=== PATIENT | female | born 2000 | race Caucasian/White ===

== ENCOUNTER 2020-05-10 09:38 | Outpatient (CLI) | payer MEDICAID, SELFPAY ==
[2020-05-11 12:46] LABS: COVID-19 RT-PCR UVMMC Result Negative (Negative)
== END 2020-05-10 09:39 | disposition home or self-care (01) ==
LOC: LBO 09:39
PROVIDERS: PCP Nurse Practitioner; Visit Provider Nurse Practitioner
DX: Z20.822 Contact with and (suspected) exposure to COVID-19 (principal)
CPT/HCPCS: U0003

== ENCOUNTER 2020-05-12 03:43 | Outpatient (CLI) | payer MEDICAID, SELFPAY ==
[2020-05-13 13:50] LABS: COVID-19 RT-PCR UVMMC Result Negative (Negative)
== END 2020-05-12 03:44 | disposition home or self-care (01) ==
LOC: LBO 03:43
PROVIDERS: PCP Nurse Practitioner; Visit Provider Nurse Practitioner
DX: Z20.822 Contact with and (suspected) exposure to COVID-19 (principal)
CPT/HCPCS: U0003

== ENCOUNTER 2021-03-27 19:04 | Emergency (ER) | payer OTHER, MEDICAID, SELFPAY ==
[2021-03-27 19:24] VITALS: BP 148/97; PULSE 108; RESP 18; TEMP 37.1; O2SAT 99
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
[2021-03-27 20:47] VITALS: BP 148/97; PULSE 108; RESP 18; TEMP 37.1; O2SAT 99
== END 2021-03-27 20:53 | disposition home or self-care (01) ==
PROVIDERS: Emergency Provider Nurse Practitioner Family; PCP Nurse Practitioner
DX: S16.1XXA Strain of muscle, fascia and tendon at neck level, initial encounter (principal); R51.9 Headache, unspecified; V49.9XXA Car occupant (driver) (passenger) injured in unspecified traffic accident, initial encounter
CPT/HCPCS: 99284; 70450; 72125; 99283

== ENCOUNTER 2021-08-07 07:57 | Emergency (ER) | payer MEDICAID, SELFPAY ==
[2021-08-07 08:03] VITALS: BP 140/87; PULSE 106; RESP 17; TEMP 37; O2SAT 100
[2021-08-07 08:05] VITALS: RESP 17
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
--- NOTE | 2021-08-07 09:35 | NUR.NOTE ---
gave patient her negative covid results:
[2021-08-07 09:37] LABS: Source Nasal/Nares
[2021-08-07 09:41] LABS: COVID-19 PCR Negative (Negative)
== END 2021-08-07 09:05 | disposition home or self-care (01) ==
PROVIDERS: Emergency Provider Physician Assistant; PCP Nurse Practitioner
DX: J06.9 Acute upper respiratory infection, unspecified (principal); J02.9 Acute pharyngitis, unspecified; Z20.822 Contact with and (suspected) exposure to COVID-19
CPT/HCPCS: 87635; 87880; 99282; U0003; 87081

== ENCOUNTER 2021-08-14 14:51 | Outpatient (REF) | payer MEDICAID, SELFPAY | END 2021-08-14 14:52 | disposition home or self-care (01) | LOC: LBN 14:51 | PROVIDERS: PCP Nurse Practitioner; Visit Provider Nurse Practitioner | DX: J02.9 Acute pharyngitis, unspecified (principal); J06.9 Acute upper respiratory infection, unspecified | CPT/HCPCS: 87070 ==

== ENCOUNTER 2022-04-22 13:06 | Emergency (ER) | payer MEDICAID, SELFPAY ==
[2022-04-22 13:09] VITALS: BP 126/87; PULSE 107; RESP 18; TEMP 37; O2SAT 100
[2022-04-22 13:13] VITALS: RESP 18
[2022-04-22] MEDS: Acetaminophen 325 MG TAB 650 MG PO (13:39)
[2022-04-22] MEDS: Ondansetron O.D.T. 4 MG TABEF PO (13:39)
--- NOTE | 2022-04-22 14:06 | W.ED.GENAD ---
Discharge Plan Disposition Patient Disposition: Home Condition: Stable Discharge Details Clinical Impression: Nausea & vomiting, Light-headed feeling Primary Care Provider: Celena Magallon ED Provider: Eileen Rose Home Meds and New Rx's Prescriptions: New ondansetron HCl 4 mg tablet 4 mg PO DAILY 3 Days Qty: 10 0RF Continued drospirenone-ethinyl estradiol [Steffi (28)] 3-0.03 mg tablet 1 tab PO DAILY Qty: 84 3RF Discharge Instructions Instructions: Acute Nausea and Vomiting (ED) Additional Instructions: Take Zofran as needed for nausea and vomiting Take ibuprofen and Tylenol for pain Return earlier should you have new or worsening complaints Recheck in 2 to 3 days if persistent symptoms Stand Alone Forms: Work Release Referrals: Celena Magallon, HYDRAULIC MODELING ENGINEER [Primary Care Provider] - Discharge Data Discharge Date/Time-TO BE ENTERED AT DEPARTURE: 04/22/22 14:19 Medical Decision Making This 21-year-old female who presents with flulike syndrome has a negative rapid test for flu and COVID at this time, I suspect her symptoms are viral, she is well in appearance Negative test in the emergency department She is given antiemetics and is able to tolerate p.o. Will take supportive care with ibuprofen and Tylenol at home Work note supplied Return precautions reviewed and patient expressed understanding Medical Records Medical records reviewed: Yes I reviewed the patient's medical records. Lab Data Lab results reviewed: Yes I reviewed the patient's lab results. HPI General Date/Time Provider Initiated Documentation: 04/22/22 13:32. HPI Narrative: This 21-year-old female presents with dry cough, nausea, and lightheadedness. She states she thinks she has had fever at home. She denies known sick contacts. She denies any chance of . She denies any chest pain or shortness of breath. Denies history of asthma Related Data Home Medications Medication Instructions Recorded Confirmed drospirenone 3 mg-ethinyl 1 tab PO DAILY #84 tabs 07/06/21 04/22/22 estradiol 0.03 mg tablet (Steffi (28)) ondansetron HCl 4 mg tablet 4 mg PO DAILY 3 days #10 tabs 04/22/22 Previous Rx's Medication Instructions Recorded drospirenone 3 mg-ethinyl 1 tab PO DAILY #84 tabs 07/06/21 estradiol 0.03 mg tablet (Steffi (28)) ondansetron HCl 4 mg tablet 4 mg PO DAILY 3 days #10 tabs 04/22/22 Allergies Allergy/AdvReac Type Severity Reaction Status Date / Time Latex, Natural Rubber Allergy Intermediate hives Verified 04/22/22 13:12 General Stated Complaint: GenMedical PHILLY: 4 Review of Systems All systems reviewed & are unremarkable except as noted in HPI and below PFSH All Active Problems (Updated 04/22/22 @ 14:11 by BLAYNE Enriquez) Nausea & vomiting (Acute) Light-headed feeling (Acute) GERD (gastroesophageal reflux disease) (Chronic) Scoliosis (Chronic) Thoracic & Lumbar; see x-ray 06/13/2015 ([facility]; scanned); Not bothersome; dx'ed adolescent & then told improving Medical History Lymphadenopathy PARATRACHEAL AND 8 MM CALCIFIED GRANULOMA ON CT CHEST 08/2015; also seen on CXR & scoliosis series x-rays (scanned) Surgical History History of wisdom tooth extraction No significant past surgical history Family History Mother Asthma Aunt Asthma Aunt Pancreatic cancer Father Hypertension Other Diabetes Social History Smoking/Tobacco Use Status: Never Second Hand Exposure: Yes Smoking risk assessment performed?: Yes Alcohol Intake: never Drug use: Never Substance use type: does not use Adopted: No Caregiver/Support person: No Foster care: No Household members: family Housing: house Number of Children: 0 Communication Needs: None Education Level: college Do you need help understanding health information?: Never 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 - [employer] Pets and animals: Yes Pets and animals: cat(s) and dog(s) Sexually active: No Do you think of yourself as: straight/heterosexual Current gender identity: female What is your relationship status?: never Panel score (0-1 are the most socially isolated patients): 0 What type of physical activity do you participate in: walking Special melissa needs: No Seatbelt use: always Helmet use: Yes Helmet use: always Drive intox or ride w/intox flatbed driver: No Working smoke detector in home: Yes Fire extinguisher in home: Yes Carbon monox detector in home: Yes Do you feel safe at home: Yes Do you feel safe in your relationship?: Yes Victim of physical abuse: No Victim of emotional abuse: No Victim of sexual abuse: No History History 0 Para 0 Hx # Term Pregnancies Multiple births Hx # Pregnancies Ectopic pregnancies AB induced Hx Number of Living Children AB spontaneous Exam Narrative Exam Narrative: Lungs clear to auscultation, no respiratory distress Oropharynx patent, abdomen nontender No acute distress, fully alert and oriented, no rashes or lesions Const General: cooperative, comfortable and no acute distress Course Vital Signs Vital signs: Vital Signs Temperature 37.0 C 04/22/22 13:09 Pulse 107 H 04/22/22 13:09 Respiratory Rate 18 04/22/22 13:09 Blood Pressure 126/87 04/22/22 13:09 Pulse Oximetry 100 04/22/22 13:09 Temperature 37.0 C 04/22/22 13:09 Temperature Source Temporal Artery Scan 04/22/22 13:09 Pulse 107 H 04/22/22 13:09 Respiratory Rate 18 04/22/22 13:13 Respiratory Effort 04/22/22 13:13 Respiratory Depth Normal 04/22/22 13:13 Respiratory Pattern Normal 04/22/22 13:13 Blood Pressure 126/87 04/22/22 13:09 Blood Pressure Position Sitting 04/22/22 13:09 Pulse Oximetry 100 04/22/22 13:09 Oxygen Delivery Method Room Air 04/22/22 13:09 Oxygen Flow Rate 0 04/22/22 13:09 Lab/Test Results Lab/Test Results: POC- Test(urine) Negative
== END 2022-04-22 14:19 | disposition home or self-care (01) ==
PROVIDERS: Emergency Provider Physician Assistant; PCP Nurse Practitioner
DX: R11.2 Nausea with vomiting, unspecified (principal); R42 Dizziness and giddiness; R05.1 Acute cough
CPT/HCPCS: 81025; 99283; 99284

== ENCOUNTER 2022-05-30 02:37 | Outpatient (CLI) | payer MEDICAID, SELFPAY ==
[2022-05-30 14:27] LABS: HCG Qual (Serum) Negative
== END 2022-05-30 02:38 | disposition home or self-care (01) ==
LOC: LBO 02:37
PROVIDERS: PCP Nurse Practitioner; Referring Provider Nurse Practitioner; Visit Provider Nurse Practitioner
DX: N92.5 Other specified irregular menstruation (principal)
CPT/HCPCS: 36415; 84703

== ENCOUNTER 2022-06-06 14:50 | Emergency (ER) | payer MEDICAID, SELFPAY ==
[2022-06-06 14:55] VITALS: BP 132/85; PULSE 98; RESP 16; TEMP 36.3; O2SAT 100
--- NOTE | 2022-06-06 15:31 | ED.GENADUL_ITS ---
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 Please return to the emergency department for any worsening symptoms. Medical Decision Making 21-year-old female presents with 1 week of vaginal bleeding and pelvic cramping intermittent in nature, spotting to heavier flow at max 3-4 pads per day, no lightheadedness no presyncope no shortness of breath no vaginal discharge, patient missed her menstrual period at the end of March and has discontinued her oral control thinking she may be , has had multiple negative tests over the past several weeks to months, nontoxic nonperitoneal nontachycardic, normotensive. Consider uterine bleeding in the setting of discontinuation of oral control versus dysfunctional uterine bleeding versus uterine polyp versus fibroid versus less likely or ectopic , lower suspicion for vaginal laceration/traumatic injury given no vaginal pain, patient has deferred pelvic examination at this time as she would rather wait to have it done at women's health. I counseled patient and her mother at bedside extensively regarding the possible causes of patient's symptoms. Stressed the importance of following up with women's health as a speculum examination, STI testing and Pap smear may be warranted; will assess urinalysis and urine test here in department. Will dose oral TXA to mitigate bleeding symptoms and will dose ibuprofen. Home care instructions and return precautions to be given 15: 59 negative urine test and urinalysis. Patient resting comfortably no acute distress hemodynamically stable. Will follow-up closely with women's health. HPI General Date/Time Provider Initiated Documentation: 06/06/22 15:07 . HPI Narrative: 21-year-old female presents with intermittent vaginal bleeding over the past week spotting and intermittently heavier at maximum going through 3-4 pads per day. Patient last had her menstrual period 04/06/2022, after missing this menstrual period patient discontinued her oral contraceptive medication as she was worried she may be . Since then has been using other methods of control. Endorses abdominal cramping intermittent in nature. Denies lightheadedness shortness of breath presyncope or vaginal discharge. Has an appointment with women's health on Saturday. 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 PHILLY: 3 Review of Systems Narrative: Review of Systems Constitutional: negative Eyes: negative ENT: negative Cardiovascular: negative Respiratory: negative Gastrointestinal: negative : Vaginal bleeding, pelvic cramping Musculoskeletal: negative Skin: negative Neurologic: negative Psych: negative PFSH All Active Problems (Updated 06/06/22 @ 16:02 by Rian Doyle MD) Abnormal vaginal bleeding (Acute) GERD (gastroesophageal reflux disease) (Chronic) Scoliosis (Chronic) Thoracic & Lumbar; see x-ray 06/13/2015 ([facility]; scanned); Not bothersome; dx'ed adolescent & then told improving Medical History Lymphadenopathy PARATRACHEAL AND 8 MM CALCIFIED GRANULOMA ON CT CHEST 08/2015; also seen on CXR & scoliosis series x-rays (scanned) Surgical History History of wisdom tooth extraction No significant past surgical history Family History Mother Asthma Aunt Asthma Aunt Pancreatic cancer Father Hypertension Other Diabetes Social History Smoking/Tobacco Use Status: Never Second Hand Exposure: Yes Smoking risk assessment performed?: Yes Alcohol Intake: never Drug use: Never Substance use type: does not use Adopted: No Caregiver/Support person: No Foster care: No Household members: family Housing: house Number of Children: 0 Communication Needs: None Education Level: college Do you need help understanding health information?: Never 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 - [employer] Pets and animals: Yes Pets and animals: cat(s) and dog(s) Sexually active: No Do you think of yourself as: straight/heterosexual Current gender identity: female What is your relationship status?: never Panel score (0-1 are the most socially isolated patients): 0 What type of physical activity do you participate in: walking Special melissa needs: No Seatbelt use: always Helmet use: Yes Helmet use: always Drive intox or ride w/intox maintenance truck driver: No Working smoke detector in home: Yes Fire extinguisher in home: Yes Carbon monox detector in home: Yes Do you feel safe at home: Yes Do you feel safe in your relationship?: Yes Victim of physical abuse: No Victim of emotional abuse: No Victim of sexual abuse: No History History 0 Para 0 Hx # Term Pregnancies Multiple births Hx # Pregnancies Ectopic pregnancies AB induced Hx Number of Living Children AB spontaneous Exam Narrative Exam Narrative: Physical Examination General: alert, awake, cooperative, resting comfortably, no acute distress HEENT: normocephalic, atraumatic; PERRL, EOM intact, conjunctiva normal; no nasal discharge; moist mucous membranes, oral and pharyngeal mucosa normal, tolerating secretions Neck: supple, trachea midline; full ROM Chest: normal to inspection Respiratory: normal respiratory effort, speaking in full sentences, clear to auscultation, no wheezing, rales or rhonchi Cardiac: regular rate, regular rhythm, S1S2 intact, no murmurs rubs or gallops GI: abdomen soft, non-tender, non-distended; no palpable mass or hepatosplenomegaly Skin: no lesions, rashes or trauma appreciated Neuro: AAOx3, normal speech, moving all extremities Psych: Appropriate mood and affect Course Vital Signs Vital signs: Vital Signs Temperature 36.3 C L 06/06/22 14:55 Pulse 98 H 06/06/22 14:55 Respiratory Rate 16 06/06/22 14:55 Blood Pressure 132/85 06/06/22 14:55 Pulse Oximetry 100 06/06/22 14:55 Temperature 36.3 C L 06/06/22 14:55 Pulse 98 H 06/06/22 14:55 Respiratory Rate 16 06/06/22 14:55 Respiratory Effort Normal 06/06/22 15:05 Blood Pressure 132/85 06/06/22 14:55 Blood Pressure Position Sitting 06/06/22 14:55 Pulse Oximetry 100 06/06/22 14:55 Oxygen Delivery Method Room Air 06/06/22 14:55 Oxygen Flow Rate 0 06/06/22 14:55 Pain Level 5 06/06/22 14:55
[2022-06-06 15:40] LABS: Bilirubin Negative (Negative); Blood Negative (Negative); Clarity Clear (Clear); Glucose Negative (Negative); Ketones Negative (Negative); Leukocyte Esterase Negative (Negative); Nitrite Negative (Negative); Specific Gravity 1.015 (1.005-1.025); Urobilinogen 0.2 mg/dL (Up to 0.2)
[2022-06-06] MEDS: Ibuprofen 600 MG TAB PO (15:50)
[2022-06-06] MEDS: Tranexamic Acid 650 MG TAB 1300 MG PO (15:50)
[2022-06-06 16:11] VITALS: BP 110/68; PULSE 64; RESP 14; O2SAT 99
== END 2022-06-06 16:32 | disposition home or self-care (01) ==
PROVIDERS: Emergency Provider Emergency Medicine; PCP Nurse Practitioner
DX: N93.8 Other specified abnormal uterine and vaginal bleeding (principal); N94.89 Other specified conditions associated with female genital organs and menstrual cycle
CPT/HCPCS: 81025; 99283; 81003

== ENCOUNTER 2022-09-10 09:51 | Outpatient (REF) | payer MEDICAID, SELFPAY ==
--- NOTE | 2022-09-10 08:40 | PAPFT_PTH ---
PATIENT: Libia Kolb LOC: [facility] U#:[id number] AGE/SX: 21/F ROOM: RE09/10/[address]: Mayra Doran NP : [id number] BED: DIS: 09/10/2022 SPEC #: [id number] RECD: 09/10/22 13:19 STATUS: ROSETTA REPolo #: [id number] RADHA: 09/10/22 08:[address]: Mayra Doran NP DEPT: [facility] Cyt[facility] RECD BY: Eileen Hatch ENTERED: 09/10/22 13:19 SP TYPE: PAPFT OTHR DR: Celena Magallon APRN Tissues: 1 - CX/ENDOCX FOR PAP SMEARS Procedures: PAP THIN PREP/[facility] Screening Comments: [id number]
== END 2022-09-10 09:52 | disposition home or self-care (01) ==
LOC: LBN 09:51
PROVIDERS: PCP Nurse Practitioner; Visit Provider Nurse Practitioner Women's Health
DX: Z12.4 Encounter for screening for malignant neoplasm of cervix (principal)
CPT/HCPCS: 88142

== ENCOUNTER 2022-09-23 11:46 | Emergency (ER) | payer MEDICAID, SELFPAY ==
[2022-09-23 11:48] VITALS: BP 111/72; PULSE 96; RESP 16; TEMP 36.8; O2SAT 100
[2022-09-23] MEDS: Ibuprofen 600 MG TAB PO (12:28)
--- NOTE | 2022-09-23 12:48 | DI.RAD_ITS ---
Exam(s) XR FOOT LT COMPLETE EXAM: XR FOOT LT COMPLETE CLINICAL HISTORY: pain. TECHNIQUE: 2D digital imaging was performed. COMPARISON: No exams were available for comparison FINDINGS: 3 views There is no evidence of fracture or diastasis of the Lisfranc joint. Bone density normal. No osseou s lesions. No erosions. IMPRESSION: No acute osseous findings. DATA REPOSITORY: RADIATION DOSE DELIVERED:
--- NOTE | 2022-09-23 13:09 | DI.VRAD_ITS ---
PROCEDURE INFORMATION: Exam: XR Left Foot Exam date and time: 09/23/2022 12:43 PM Age: 21 years old Clinical indication: Foot; Left; Patient HX: No known trauma - pain week TECHNIQUE: Imaging protocol: Radiologic exam of the left foot. Views: 3 or more views. COMPARISON: No relevant prior studies available. FINDINGS: Bones/joints: Normal. No acute fracture or dislocation. Soft tissues: Normal. IMPRESSION: No acute findings. Dictated and Authenticated by: Rox Mancuso MD. Ordering:MIKE Leon MD
--- NOTE | 2022-09-23 13:13 | ED.GENADUL_ITS ---
Discharge Plan Disposition Patient Disposition: Home Discharge Details Clinical Impression: Plantar fasciitis of left foot Primary Care Provider: Celena Magallon ED Provider: Edward Encarnacion Home Meds and New Rx's Prescriptions: New ibuprofen [IBU] 600 mg tablet 600 mg PO QID PRN (Reason: pain) Qty: 20 0RF Continued norethindrone-e.estradiol-iron [ 1.5/30 (28)] 1.5 mg-30 mcg (21)/75 mg (7) tablet 1 tab PO DAILY Qty: 84 4RF Discharge Instructions Instructions: Plantar Fasciitis (ED), Plantar Fasciitis Exercises (ED) Additional Instructions: Please wear supportive footwear that better support your arches as I feel that this is part of the reason you are having significant foot pain. It is recommended to rest and perform the exercises given in the information packet. If not improving in the next 1 to 2 weeks please follow with your primary care provider for reassessment or return the emergency department for any new or significant worsening of symptoms. Referrals: Celena Magallon, LATEX RIBBON MACHINE OPERATOR [Primary Care Provider] - (For reassessment if not improving in the next 1 to 2 weeks) Discharge Data Discharge Date/Time-TO BE ENTERED AT DEPARTURE: 09/23/22 13:44 Medical Decision Making Patient presenting to the emergency department for chief complaint of left foot pain. Patient states pain worsens on walking and feels like it is changing color. Patient denies any known injury or trauma but states she may have injured it while at work. Physical exam shows significant plantar tenderness with slight dorsal foot tenderness. No swelling, no pallor or ecchymosis, no erythema, appearance of foot is equal bilateral with no other obvious findings noted. No calf pain, no proximal discomfort to palpation. We will plan on performing radiological imaging of the foot to rule out occult fracture but I am highly suspicious of planter fasciitis Review of radiological imaging shows no acute findings. Patient instructed on plantar fasciitis care, supportive footwear, use of NSAIDs, and return and follow-up precautions. After discussion of diagnosis and plan of care patient has no further needs, questions, or concerns and states clear understanding to return to the emergency department for any worsening symptoms. This documentation was generated using SimpliVityation system, please disregard any oddities of phrase or misspellings. Imaging Data Radiologic Study: Imaging: X-Ray Radiologist's impression: Exam(s) PROCEDURE INFORMATION: Exam: XR Left Foot Exam date and time: 09/23/2022 12:43 PM Age: 21 years old Clinical indication: Foot; Left; Patient HX: No known trauma - pain week TECHNIQUE: Imaging protocol: Radiologic exam of the left foot. Views: 3 or more views. COMPARISON: No relevant prior studies available. FINDINGS: Bones/joints: Normal. No acute fracture or dislocation. Soft tissues: Normal. IMPRESSION: No acute findings. HPI General Mode of arrival: ambulatory . Date/Time Provider Initiated Documentation: 09/23/22 11:56 . Limitations to Documentation: no limitations . Information obtained by: patient and RN notes reviewed . History of Present I llness 21 year old F presents to the emergency department with the chief complaint of Left foot pain, described as moderate, Quality is described as aching, and is localized to the left and lower extremity. Patient started experiencing this day(s) (5) and it has been intermittent. Rest improves symptom(s), Other factors that worsen symptoms (Ambulation) . Patient notes no other symptoms.. Patient did receive the following treatments prior to arrival, none Related Data Home Medications Medication Instructions Recorded Confirmed norethindrone 1.5 mg-ethinyl 1 tab PO DAILY #84 tabs 09/10/22 09/23/22 estradiol 30 mcg(21)/iron 75 mg(7) tablet ( FE .09/04 (28)) ibuprofen 600 mg tablet (IBU) 600 mg PO QID PRN pain #20 tabs 09/23/22 Previous Rx's Medication Instructions Recorded norethindrone 1.5 mg-ethinyl 1 tab PO DAILY #84 tabs 09/10/22 estradiol 30 mcg(21)/iron 75 mg(7) tablet ( FE .09/04 (28)) ibuprofen 600 mg tablet (IBU) 600 mg PO QID PRN pain #20 tabs 09/23/22 Allergies Allergy/AdvReac Type Severity Reaction Status Date / Time Latex, Natural Rubber Allergy Intermediate hives Verified 09/23/22 12:29 General Stated Complaint: Orthopedic PHILLY: 4 Review of Systems Cardiovascular Cardiovascular: Denies leg edema, Denies lightheadedness and Denies dyspnea Respiratory Respiratory: Denies dyspnea Musculoskeletal Musculoskeletal: Reports as per HPI, Denies myalgias, Denies arthralgias, Denies joint swelling, Denies numbness and Denies tingling Integumentary/Breasts Skin/Breast: Denies erythema and Denies rash Neurologic Neurologic: Denies numbness and Denies tingling PFSH All Active Problems Plantar fasciitis of left foot (Acute) Scoliosis (Chronic) Thoracic & Lumbar; see x-ray 06/13/2015 ([facility]; scanned); Not bothersome; dx'ed adolescent & then told improving GERD (gastroesophageal reflux disease) (Chronic) Medical History Abnormal vaginal bleeding Lymphadenopathy PARATRACHEAL AND 8 MM CALCIFIED GRANULOMA ON CT CHEST 08/2015; also seen on CXR & scoliosis series x-rays (scanned) Surgical History History of wisdom tooth extraction No significant past surgical history Family History Mother Asthma Aunt Asthma Aunt Pancreatic cancer Father Hypertension Other Diabetes Social History Smoking/Tobacco Use Status: Unknown Second Hand Exposure: Yes Smoking risk assessment performed?: Yes Alcohol Intake: never Drug use: Never Substance use type: does not use Adopted: No Caregiver/Support person: No Foster care: No Household members: family Housing: house Number of Children: 0 Communication Needs: None Education Level: college Do you need help understanding health information?: Never 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 [employer] Pets and animals: Yes Pets and animals: cat(s) and dog(s) Sexually active: No Do you think of yourself as: straight/heterosexual Current gender identity: female What is your relationship status?: never Panel score (0-1 are the most socially isolated patients): 0 What type of physical activity do you participate in: walking Special melissa needs: No Seatbelt use: always Helmet use: Yes Helmet use: always Drive intox or ride w/intox cdl a driver: No Working smoke detector in home: Yes Fire extinguisher in home: Yes Carbon monox detector in home: Yes Do you feel safe at home: Yes Do you feel safe in your relationship?: Yes Victim of physical abuse: No Victim of emotional abuse: No Victim of sexual abuse: No Female Reproductive History Menstrual control method: pills History History 0 Para 0 Hx # Term Pregnancies Multiple births Hx # Pregnancies Ectopic pregnancies AB induced Hx Number of Living Children AB spontaneous Exam Const General: cooperative, no acute distress and not ill appearing Orientation: alert, awake and oriented x3 HENMT Mouth: moist mucous membranes Resp Effort & Inspection: normal respiratory effort, able to speak in complete sentences and no respiratory distress Cardio Rate: regular rate Rhythm: regular rhythm Pulses: normal peripheral pulses Skin General skin exam: no rashes or lesions noted Neuro General: patient alert, patient awake, patient oriented x3, moves all extremit ies and no focal motor deficits Sensory Exam: no sensory deficits noted Extrem General: normal exam except as noted Left lower extremity: foot Details: normal capillary refill, normal to inspection, tenderness Location: of the dorsal foot and of the plantar foot, toes with normal ROM, no edema and vascular exam Details: dorsalis pedis pulse present, posterior tibial pulse present and normal capillary refill; no abrasions, no lacerations and no ecchymosis Course Vital Signs Vital signs: Vital Signs Temperature 36.8 C 09/23/22 11:48 Pulse 96 H 09/23/22 11:48 Respiratory Rate 16 09/23/22 11:48 Blood Pressure 111/72 09/23/22 11:48 Pulse Oximetry 100 09/23/22 11:48 Temperature 36.8 C 09/23/22 11:48 Temperature Source Skin 09/23/22 11:48 Pulse 96 H 09/23/22 11:48 Respiratory Rate 16 09/23/22 11:48 Respiratory Effort Normal, Non-Labored 09/23/22 12:30 Blood Pressure 111/72 09/23/22 11:48 Blood Pressure Position Sitting 09/23/22 11:48 Pulse Oximetry 100 09/23/22 11:48 Oxygen Delivery Method Room Air 09/23/22 11:48 Oxygen Flow Rate 0 09/23/22 11:48 Pain Level 8 09/23/22 11:48 Lab/Test Results Lab/Test Results: POC- Test(urine) Negative
[2022-09-23 13:43] VITALS: BP 111/72; PULSE 85; RESP 16; TEMP 36.8; O2SAT 100
== END 2022-09-23 13:44 | disposition home or self-care (01) ==
PROVIDERS: Emergency Provider Nurse Practitioner Family; PCP Nurse Practitioner
DX: M72.2 Plantar fascial fibromatosis (principal)
CPT/HCPCS: 99283; 73630